=== PATIENT | female | born 1990 | race Caucasian/White ===

== ENCOUNTER 2019-03-15 09:41 | Day surgery (SDC) | payer BC ==
[2019-03-14 08:51] VITALS: BMI 34.3
[~2019-03-15 09:41] MED LIST: LACTATED RINGERS 1,000 ML IV SCH; LIDOCAINE 1% 20 ML VIAL (10MG/ML) FOR IV START INTRADERMA PRN
[2019-03-15 10:10] VITALS: RESP 18; TEMP 97.3
[2019-03-15 10:14] LABS: Glucose,Whole Blood 91 mg/dL (75-99)
[2019-03-15] MEDS ORDERED: ONDANSETRON 4 MG/2 ML VIAL IVP ONE (10:17)
[2019-03-15] MEDS ORDERED: LIDOCAINE 1% INJ 10MG/ML (20 ML MDV) ONE (10:20)
[2019-03-15] MEDS ORDERED: MIDAZOLAM 2 MG/2 ML VIAL ONE (10:20)
[2019-03-15] MEDS ORDERED: fentaNYL (PF) 50 MCG/ML 2 ML AMP ONE (10:20)
[2019-03-15] MEDS ORDERED: PROPOFOL 10 MG/ML 20 ML VIAL IV ONE (10:20)
--- NOTE | 2019-03-15 10:52 | P.PCN ---
Date of Procedure: 03/15/19 Procedure(s) Performed: BRIEF HISTORY: Patient is a 22-year-old, pleasant, white female, scheduled for an upper endoscopy as a part of evaluation of reflux and history of GERD of 10 years duration. Presently on Zantac 150 milligrams daily and doing well. She is scheduled for an upper endoscopy to rule out complicated reflux. PROCEDURE PERFORMED: Esophagogastroduodenoscopy with biopsy. PREOPERATIVE DIAGNOSIS: Long-standing History of GERD. IV sedation per anesthesia. PROCEDURE: After informed consent was obtained, the patient was brought into the endoscopy unit. IV sedation was administered by Anesthesia under continuous monitoring. Initially the Olympus GIF-140 video endoscope was inserted into the mouth. Esophagus intubated without any difficulty. It was gradually advanced into the stomach and duodenum and carefully examined. The bulb and the second part of the duodenum appeared normal. The scope at this time was withdrawn to the stomach, adequately insufflated with air, and upon careful examination, mucosa of the antrum, and mild gastritis and biopsies were done from this area. body, cardia and the fundus appeared normal. The scope was then withdrawn into the esophagus. The GE junction was located at 39 cm from the incisors. The esophagus appeared normal. There were no erosions or ulcerations seen and the patient tolerated the procedure well. IMPRESSION: 1. Mild antral gastritis. 2. No evidence of esophagitis or Graff's esophagus. RECOMMENDATIONS: The findings of this examination were discussed with the patient as well as a family. She was advised to follow with the biopsy results. She will continue with Zantac 150 milligrams daily or TWICE daily as needed based on the symptoms and follow antireflux measures..
[2019-03-15 11:06] VITALS: BP 117/82; PULSE 88
== END 2019-03-15 11:38 | disposition home or self-care (01) ==
LOC: ORWHC2ENDO 09:41
PROVIDERS: ATTEND Internal Medicine Gastroenterology
DX: K21.0 Gastro-esophageal reflux disease with esophagitis (principal); K29.50 Unspecified chronic gastritis without bleeding; E11.9 Type 2 diabetes mellitus without complications; Z79.84 Long term (current) use of oral hypoglycemic drugs; Z79.899 Other long term (current) drug therapy
CPT/HCPCS: 43239; 81025; 88305; J2250; J2405; J2001; J3010; J2704

== ENCOUNTER → 2020-02-18 | Outpatient (CLI) | payer BC ==
[2020-02-18 18:30] LABS: T4, Free (Free Thyroxine) 1.2 ng/dL (0.80-1.80)
== END | disposition home or self-care (01) ==
LOC: LABWHC1 08:56
PROVIDERS: ATTEND Internal Medicine
DX: R53.83 Other fatigue (principal); R63.5 Abnormal weight gain; R61 Generalized hyperhidrosis
CPT/HCPCS: 36415; 84439; 84443; 84481; 86800

== ENCOUNTER → 2020-07-24 | Outpatient (CLI) | payer BC | END | disposition home or self-care (01) | LOC: LABWHC1 16:54 | PROVIDERS: ATTEND Internal Medicine | DX: R05 Cough (principal); R50.9 Fever, unspecified | CPT/HCPCS: U0003; C9803 ==